=== PATIENT | female | born 1965 | race Caucasian/White ===

== ENCOUNTER 2018-06-08 09:55 | Day surgery (SDC) | payer BC ==
[~2018-06-08 09:55] MED LIST: LIDOCAINE HCL 1% MPF 30 SOL ONE; PROPOFOL 500 MG/50 ML EMU IV ONE
[2018-06-08 11:44] VITALS: BP 112/74; PULSE 52; RESP 20; TEMP 97.4; O2SAT 100
== END 2018-06-08 11:55 | disposition home or self-care (01) ==
LOC: SURG 09:55
PROVIDERS: ATTEND Surgery
DX: Z12.11 Encounter for screening for malignant neoplasm of colon (principal)
CPT/HCPCS: J2001; J2704